=== PATIENT | female | born 1950 | race Caucasian/White ===

== ENCOUNTER 2025-09-17 17:42 | Inpatient (IN) | payer MEDICARE, MEDICAID ==
[~2025-09-17] VITALS: Ht 149.9 cm; Wt 47.7 kg
[2025-09-17 18:13] VITALS: O2SAT 100
[2025-09-17 19:16] LABS: BG DEOXYHEMOGLOBIN 78.6 % (0.0-5.0)
[2025-09-17 19:28] LABS: BASOPHILS % 1.0 % (0.0-2.0); EOSINOPHILS % 1.1 % (0.0-5.0); HEMATOCRIT. 40.9 % (36.0-48.0); HEMOGLOBIN. 13.7 g/dL (12.0-16.0); LYMPHOCYTES % 29.6 % (20.0-50.0); MEAN PLATELET VOLUME 8.7 fl (7.4-10.4); MONOCYTES % 4.6 % (2.0-8.0); NEUTROPHILS % 63.7 % (40.0-76.0); PLATELET 398 x1000/uL (130-400); RED BLOOD CELL COUNT 4.49 mill/uL (4.2-5.4); RED CELL DISTRIBUTION WIDTH 13.4 % (11.6-14.6)
[2025-09-17 19:38] LABS: CLARITY URINE CLEAR (CLEAR); COLOR URINE YELLOW (YELLOW)
[2025-09-17 19:39] LABS: GLUCOSE URINE 3+ (NEGATIVE); KETONES URINE 2+ (NEGATIVE); NITRITE URINE NEGATIVE (NEGATIVE); OCCULT BLOOD URINE NEGATIVE (NEGATIVE); PH URINE 6.0 (4.5-8.0); PROTEIN URINE NEGATIVE (NEGATIVE); SPECIFIC GRAVITY URINE 1.039 (1.005-1.030); UROBILINOGEN URINE 0.2 E.U./dL (0.2-1.0)
[2025-09-17 19:40] LABS: CREATININE 1.1 mg/dL (0.6-1.0)
[2025-09-17 19:40] LABS: LEUKOCYTE ESTERASE URINE NEGATIVE (NEGATIVE)
[2025-09-17 19:41] LABS: TROPONIN I HIGH SENSITIVITY 14 ng/L (3.0-34); UREA NITROGEN BLOOD 15 mg/dL (9-23)
[2025-09-17 19:42] LABS: ASPARTATE AMINOTRANSFERASE 17 IU/L (<34)
[2025-09-17 19:43] LABS: BILIRUBIN DIRECT < 0.1 mg/dL (<=3.0); BILIRUBIN TOTAL 0.3 mg/dL (0.1-1.0); PROTEIN TOTAL 7.6 g/dL (6.0-8.3)
[2025-09-17] MEDS ORDERED: BLOOD SUGAR DIAGNOSTIC STRIP TEST PRN (20:00)
[2025-09-17] MEDS ORDERED: INSULIN REGULAR (DRIP) 100 UNITS in SODIUM CHLORIDE 0.9% 99 ML IV SCH (20:00)
[2025-09-17] MEDS ORDERED: POTASSIUM CHLORIDE 40 MEQ in SODIUM CHLORIDE 0.9% 230 ML IV PRN (20:00)
[2025-09-17] MEDS ORDERED: SODIUM PHOSPHATE 15 MMOL in SODIUM CHLORIDE 0.9% 245 ML IV PRN (20:00)
[2025-09-17] MEDS: SODIUM CHLORIDE 0.9% 1,000 ML IV ONE (20:00)
[2025-09-17] MEDS ORDERED: DEXTROSE 50% WATER 50ML SYRINGE IV PRN (20:00)
[2025-09-17] MEDS: BLOOD SUGAR DIAGNOSTIC STRIP TEST SCH (20:18)
[2025-09-17] MEDS: INSULIN REGULAR 100U/100ML PMX 100 ML IV SCH (20:45)
[2025-09-17 20:46] LABS: BACTERIA URINE 1+; RBC URINE 0-2 /hpf (0-2); SQUAMOUS EPITHELIAL CELL URINE FEW /lpf (RARE/1+); WBC URINE 0-2 /hpf (0-2)
[2025-09-17] MEDS: SODIUM CHLORIDE 0.9% 1,000 ML IV SCH (21:50)
[2025-09-17 23:41] LABS: PHOSPHORUS 2.3 mg/dL (2.5-4.9)
[2025-09-17] MEDS: DEXT 5%/0.9% NACL 1,000 ML IV SCH (23:56)
[2025-09-18] VITALS (43 sets, daily range): BP systolic 86–148; BP diastolic 53–119; PULSE 69–102; RESP 12–25; TEMP 36.5848–36.7; O2SAT 95–99
[2025-09-18] MEDS: KCL 20MEQ/100ML PREMIX 100 ML IV PRN (00:11)
[2025-09-18 02:59] LABS: PHOSPHORUS 1.8 mg/dL (2.5-4.9)
[2025-09-18] MEDS: MAGNESIUM 2 G PREMIX 50 ML IV PRN (04:26)
[2025-09-18] MEDS ORDERED: DEXTROSE 50% WATER 50ML SYRINGE IV PRN (05:45)
[2025-09-18 07:04] LABS: BASOPHILS % 0.7 % (0.0-2.0); EOSINOPHILS % 1.1 % (0.0-5.0); HEMATOCRIT. 37.1 % (36.0-48.0); HEMOGLOBIN. 12.1 g/dL (12.0-16.0); LYMPHOCYTES % 33.9 % (20.0-50.0); MEAN PLATELET VOLUME 9.0 fl (7.4-10.4); MONOCYTES % 7.7 % (2.0-8.0); NEUTROPHILS % 56.6 % (40.0-76.0); PLATELET 296 x1000/uL (130-400); RED BLOOD CELL COUNT 4.05 mill/uL (4.2-5.4); RED CELL DISTRIBUTION WIDTH 13.7 % (11.6-14.6)
[2025-09-18 07:20] LABS: CREATININE 0.6 mg/dL (0.6-1.0)
[2025-09-18 07:21] LABS: UREA NITROGEN BLOOD 9 mg/dL (9-23)
[2025-09-18 07:23] LABS: PHOSPHORUS 1.9 mg/dL (2.5-4.9)
[2025-09-18] MEDS: ENOXAPARIN 30MG/0.3ML SYR SUBCUT SCH (08:06)
[2025-09-18] MEDS: INSULIN LISPRO 100 UNITS/ML SUBCUT SCH (08:09)
[2025-09-18] MEDS: BLOOD SUGAR DIAGNOSTIC STRIP TEST SCH (08:09)
[2025-09-18] MEDS ORDERED: INSULIN GLARGINE 100 UNITS/ML SUBCUT SCH (10:00)
[2025-09-18] MEDS: POTASSIUM-SODIUM PHOSPHATE POWDER PACKET PO SCH (11:27)
[2025-09-18] MEDS: INSULIN GLARGINE 100 UNITS/ML SUBCUT SCH (11:35)
[2025-09-19 08:00] VITALS: BP 110/58; PULSE 98; RESP 17; TEMP 36.3; O2SAT 98
[2025-09-19] MEDS ORDERED: INSU100I28 SQ (09:53)
[2025-09-19 13:11] VITALS: BP 114/55; PULSE 88; RESP 17; TEMP 97
== END 2025-09-19 16:40 | disposition home or self-care (01) | DRG 639 ==
LOC: ER 17:42 → EDBEDREQ 22:06 → CVICU 22:59 → EDBEDREQSVC 23:01 → EDBEDREQTM 23:14 → ENRESERV 09-18 03:44 → 6WST 09-18 18:04
PROVIDERS: ADMIT Internal Medicine; ATTEND Internal Medicine
DX: E11.10 Type 2 diabetes mellitus with ketoacidosis without coma (principal); Z79.899 Other long term (current) drug therapy; Z79.84 Long term (current) use of oral hypoglycemic drugs; Z79.4 Long term (current) use of insulin
CPT/HCPCS: 36415; 80048; 80076; 81003; 82010; 82375; 82803; 82962; 83605; 83735; 83880; 84100; 84132; 84484; 85025; 93005; 96365; 96367; 99285; J1650; J1815; J3475; J3480; J3490; J7030; J7042; J7050